=== PATIENT | female | born 1995 | race Hispanic/Latino ===

== ENCOUNTER 2022-02-03 08:17 | Emergency (ER) | payer OTHER ==
[~2022-02-03] VITALS: Ht 154.9 cm; Wt 56.8 kg
[2022-02-03] MEDS ORDERED: NAPR-885 PO (08:25)
[2022-02-03] MEDS ORDERED: IBUP1TAB7 PO (08:25)
[2022-02-03] MEDS ORDERED: traMADol 50 MG TAB PO ONE (09:40)
[2022-02-03] MEDS ORDERED: ACETAMINOPHEN TAB 650MG DOSE (2X325MG) PO ONE (09:40)
[2022-02-03 11:52] LABS: BASO # 0.1 10^3/uL (0.0-0.2); BASO % 0.8 % (0.0-1.0); EOS # 0.1 10^3/uL (0.0-0.5); EOS % 1.6 % (0.0-3.0); HEMATOCRIT 34.9 % (36.0-47.0); HEMOGLOBIN 11.4 g/dl (12.0-15.5); LYMPH # 2.2 10^3/uL (1.5-5.0); LYMPH % 35.7 % (24.0-44.0); MEAN CORPUSCULAR HEMOGLOBIN 28.9 pg (27.0-33.0); MEAN CORPUSCULAR HGB CONC 32.7 g/dl (32.0-36.5); MEAN CORPUSCULAR VOLUME 88.4 fl (80.0-96.0); MONO # 0.5 10^3/uL (0.0-0.8); MONO % 8.7 % (2.0-8.0); NEUTROPHILS # 3.3 10^3/uL (1.5-8.5); NEUTROPHILS % 52.9 % (36.0-66.0); PLATELET COUNT, AUTOMATED 264 10^3/uL (150-450); RED BLOOD COUNT 3.95 10^6/uL (4.00-5.40); WHITE BLOOD COUNT 6.2 10^3/uL (4.0-10.0)
[2022-02-03 12:26] LABS: HCG, SERUM QUALITATIVE NEGATIVE (NEGATIVE)
[2022-02-03 12:27] LABS: BLOOD UREA NITROGEN 11 MG/DL (7-18); CALCIUM LEVEL 8.9 MG/DL (8.5-10.1); CARBON DIOXIDE LEVEL 24 MEQ/L (21-32); CHLORIDE LEVEL 109 MEQ/L (98-107); CREATININE FOR GFR 0.48 MG/DL (0.55-1.30); GLOMERULAR FILTRATION RATE > 60.0 (>60); GLUCOSE, FASTING 83 MG/DL (70-100); SODIUM LEVEL 137 MEQ/L (136-145)
[2022-02-03] MEDS ORDERED: HYDR-3713 PO ×2 (13:30→14:11)
[2022-02-03 13:58] VITALS: BP 118/56
== END 2022-02-04 03:18 | disposition home or self-care (01) ==
LOC: M ED 08:17
DX: S49.91XA Unspecified injury of right shoulder and upper arm, initial encounter (principal); X50.0XXA Overexertion from strenuous movement or load, initial encounter; Y92.89 Other specified places as the place of occurrence of the external cause; Y93.B3 Activity, free weights; Y99.1 Military activity

== ENCOUNTER 2022-12-16 22:00 | Emergency (ER) | payer MEDICARE, OTHER ==
[~2022-12-16] VITALS: Ht 154.9 cm; Wt 53.0 kg
[~2022-12-16 22:00] MED LIST: HYDR-3713 PO; IBUP1TAB7 PO; NAPR-885 PO
[2022-12-16] MEDS ORDERED: MULTTAB20 PO (22:41)
[2022-12-17] MEDS ORDERED: NS 1,000 ML IV ONE (07:35)
[2022-12-17 08:24] LABS: BASO % 0.5 % (0.0-1.0); EOS # 0.1 10^3/uL (0.0-0.5); EOS % 2.4 % (0.0-3.0); HEMATOCRIT 33.5 % (36.0-47.0); HEMOGLOBIN 11.1 g/dl (12.0-15.5); LYMPH # 1.3 10^3/uL (1.5-5.0); LYMPH % 30.8 % (24.0-44.0); MEAN CORPUSCULAR HEMOGLOBIN 29.4 pg (27.0-33.0); MEAN CORPUSCULAR HGB CONC 33.1 g/dl (32.0-36.5); MEAN CORPUSCULAR VOLUME 88.6 fl (80.0-96.0); MONO # 0.4 10^3/uL (0.0-0.8); MONO % 9.8 % (2.0-8.0); NEUTROPHILS # 2.3 10^3/uL (1.5-8.5); NEUTROPHILS % 56.3 % (36.0-66.0); PLATELET COUNT, AUTOMATED 195 10^3/uL (150-450); RED BLOOD COUNT 3.78 10^6/uL (4.00-5.40); WHITE BLOOD COUNT 4.1 10^3/uL (4.0-10.0)
[2022-12-17] MEDS ORDERED: ACETAMINOPHEN 325 MG TAB PO ONE (08:35)
[2022-12-17] MEDS ORDERED: METOCLOPRAMIDE INJ 10MG/2ML VIAL IV ONE (08:35)
[2022-12-17] MEDS ORDERED: FAMOTIDINE 20 MG TAB PO ONE (08:35)
[2022-12-17] MEDS ORDERED: MULTIVITAMIN -ADULT INJECTION 10 ML, THIAMINE INJection 100 MG, FOLIC ACID 1 MG in NS 1... IV ONE (08:35)
[2022-12-17 08:50] LABS: LIPASE 22 U/L (12-53)
[2022-12-17 08:56] LABS: ALBUMIN 3.4 G/DL (3.2-5.2); ALKALINE PHOSPHATASE 52 U/L (46-116); ALT/SGPT 10 U/L (7.0-40); AST/SGOT 15 U/L (<34); BILIRUBIN,DIRECT 0.1 MG/DL (<0.4); BILIRUBIN,TOTAL 0.5 MG/DL (0.3-1.2); BLOOD UREA NITROGEN 8 MG/DL (9-23); CALCIUM LEVEL 8.7 MG/DL (8.5-10.1); CARBON DIOXIDE LEVEL 23 MMOL/L (20-31); CHLORIDE LEVEL 104 MMOL/L (98-107); CREATININE FOR GFR 0.57 MG/DL (0.55-1.30); GLOMERULAR FILTRATION RATE > 60.0 (>60); GLUCOSE, FASTING 81 MG/DL (60-100); POTASSIUM SERUM 3.6 MMOL/L (3.5-5.1); SODIUM LEVEL 137 MMOL/L (136-145); TOTAL PROTEIN 6.4 G/DL (5.7-8.2)
[2022-12-17 09:42] LABS: CK-MB VALUE MASS < 1.0 NG/ML (<3.6)
[2022-12-17 09:44] LABS: CPK CREATINE PHOSPHOKINASE 47 U/L (34-145); MB/CK RELATIVE INDEX 2.12 (< OR =4)
[2022-12-17 10:03] LABS: HCG, SERUM QUANTITATIVE 62800.5 MIU/ML (<4.2)
[2022-12-17 11:49] VITALS: BP 119/57
[2022-12-19] MEDS ORDERED: MACR100C43 PO (12:21)
== END 2022-12-17 11:51 | disposition home or self-care (01) ==
LOC: M ED 22:00
DX: O26.91 Pregnancy related conditions, unspecified, first trimester (principal); R10.13 Epigastric pain; O21.9 Vomiting of pregnancy, unspecified; O99.891 Other specified diseases and conditions complicating pregnancy; R22.32 Localized swelling, mass and lump, left upper limb; Z3A.01 Less than 8 weeks gestation of pregnancy; Z79.899 Other long term (current) drug therapy
CPT/HCPCS: 76801; 76817; 76882; 80048; 80076; 81000; 81015; 82550; 82553; 83690; 84702; 85025; 87088; 87186; 87428; 87486; 87581; 87633; 87798; 93005; 93976; 96361; 96365; 96366; 96375; 99284; J2765; J3411

== ENCOUNTER 2022-12-31 18:39 | Emergency (ER) | payer OTHER ==
[~2022-12-31] VITALS: Ht 154.9 cm; Wt 52.1 kg
[2022-12-31 18:39] VITALS: BP 135/63
[~2022-12-31 18:39] MED LIST changes: +MACR100C43 PO; +MULTTAB20 PO
[2022-12-31] MEDS ORDERED: NS 1,000 ML IV ONE (20:45)
[2022-12-31] MEDS ORDERED: ONDANSETRON 4MG 2ML VIAL IV ONE (20:45)
[2022-12-31 21:06] LABS: BASO # 0.1 10^3/uL (0.0-0.2); BASO % 0.7 % (0.0-1.0); EOS # 0.1 10^3/uL (0.0-0.5); EOS % 1.1 % (0.0-3.0); HEMATOCRIT 35.4 % (36.0-47.0); LYMPH # 2.5 10^3/uL (1.5-5.0); LYMPH % 27.3 % (24.0-44.0); MEAN CORPUSCULAR HEMOGLOBIN 29.1 pg (27.0-33.0); MEAN CORPUSCULAR HGB CONC 33.9 g/dl (32.0-36.5); MEAN CORPUSCULAR VOLUME 85.9 fl (80.0-96.0); MONO # 0.5 10^3/uL (0.0-0.8); MONO % 5.7 % (2.0-8.0); NEUTROPHILS % 64.8 % (36.0-66.0); PLATELET COUNT, AUTOMATED 287 10^3/uL (150-450); RED BLOOD COUNT 4.12 10^6/uL (4.00-5.40); WHITE BLOOD COUNT 9.2 10^3/uL (4.0-10.0)
[2022-12-31] MEDS ORDERED: diphenhydrAMINE 50MG/ML VIAL IV ONE (21:35)
[2022-12-31 21:58] LABS: ALBUMIN 3.6 G/DL (3.2-5.2); ALKALINE PHOSPHATASE 51 U/L (46-116); ALT/SGPT 12 U/L (7.0-40); AST/SGOT 17 U/L (<34); BILIRUBIN,TOTAL 0.4 MG/DL (0.3-1.2); BLOOD UREA NITROGEN 10 MG/DL (9-23); CARBON DIOXIDE LEVEL 25 MMOL/L (20-31); CHLORIDE LEVEL 103 MMOL/L (98-107); CREATININE FOR GFR 0.46 MG/DL (0.55-1.30); GLOMERULAR FILTRATION RATE > 60.0 (>60); GLUCOSE, FASTING 77 MG/DL (60-100); POTASSIUM SERUM 3.7 MMOL/L (3.5-5.1); SODIUM LEVEL 136 MMOL/L (136-145)
[2022-12-31 22:00] LABS: MAGNESIUM LEVEL 1.9 MG/DL (1.8-2.4)
[2022-12-31] MEDS ORDERED: METOCLOPRAMIDE INJ 10MG/2ML VIAL IV ONE (22:45)
[2022-12-31] MEDS ORDERED: REGL5TAB2 PO (23:23)
[2022-12-31] MEDS ORDERED: ONDA4TAB6 PO (23:32)
== END 2023-01-01 | disposition home or self-care (01) ==
LOC: M ED 18:39
DX: O26.899 Other specified pregnancy related conditions, unspecified trimester (principal); Z3A.08 8 weeks gestation of pregnancy
CPT/HCPCS: 76705; 80053; 81001; 83735; 85025; 96361; 96374; 96375; 99283; J1200; J2405; J2765

== ENCOUNTER → 2023-01-06 | Outpatient (CLI) | payer OTHER ==
[~2023-01-06] MED LIST changes: +ONDA4TAB6 PO; +REGL5TAB2 PO
[2023-01-06 14:38] LABS: HEMATOCRIT 35.7 % (36.0-47.0); HEMOGLOBIN 11.8 g/dl (12.0-15.5); MEAN CORPUSCULAR HEMOGLOBIN 29.6 pg (27.0-33.0); MEAN CORPUSCULAR HGB CONC 33.1 g/dl (32.0-36.5); MEAN CORPUSCULAR VOLUME 89.7 fl (80.0-96.0); PLATELET COUNT, AUTOMATED 277 10^3/uL (150-450); RED BLOOD COUNT 3.98 10^6/uL (4.00-5.40); WHITE BLOOD COUNT 6.6 10^3/uL (4.0-10.0)
[2023-01-06 15:37] LABS: HIV 1&2 SCREEN CENTAUR NEGATIVE (NEGATIVE)
[2023-01-06 16:21] LABS: GC DNA AMPLIFICATION NEGATIVE (NEGATIVE)
== END ==
LOC: M PLALAB 09:33
PROVIDERS: ATTEND Advanced Practice Midwife
DX: Z34.81 Encounter for supervision of other normal pregnancy, first trimester (principal)

== ENCOUNTER → 2023-02-03 | Outpatient (CLI) | payer OTHER | LOC: M PLALAB 10:34 | PROVIDERS: ATTEND Advanced Practice Midwife | DX: Z34.80 Encounter for supervision of other normal pregnancy, unspecified trimester (principal) ==

== ENCOUNTER → 2023-04-15 | Outpatient (CLI) | payer OTHER | LOC: M WHC 09:20 | PROVIDERS: ATTEND Advanced Practice Midwife | DX: Z34.82 Encounter for supervision of other normal pregnancy, second trimester (principal); Z3A.23 23 weeks gestation of pregnancy ==

== ENCOUNTER → 2023-04-27 | Outpatient (CLI) | payer OTHER ==
[2023-04-27 14:01] LABS: HEMATOCRIT 28.7 % (36.0-47.0); HEMOGLOBIN 9.1 g/dl (12.0-15.5); MEAN CORPUSCULAR HEMOGLOBIN 28.6 pg (27.0-33.0); MEAN CORPUSCULAR HGB CONC 31.7 g/dl (32.0-36.5); MEAN CORPUSCULAR VOLUME 90.3 fl (80.0-96.0); PLATELET COUNT, AUTOMATED 236 10^3/uL (150-450); RED BLOOD COUNT 3.18 10^6/uL (4.00-5.40); WHITE BLOOD COUNT 8.5 10^3/uL (4.0-10.0)
[2023-04-27 15:22] LABS: GC DNA AMPLIFICATION NEGATIVE (NEGATIVE)
== END ==
LOC: M PLALAB 10:09
PROVIDERS: ATTEND Obstetrics & Gynecology
DX: Z34.80 Encounter for supervision of other normal pregnancy, unspecified trimester (principal)
CPT/HCPCS: 36415; 82950; 85027; 86850; 86900; 86901; 87810; 87850; G0463

== ENCOUNTER 2023-05-05 10:01 | Outpatient (CLI) | payer OTHER ==
[~2023-05-05] VITALS: Ht 162.6 cm; Wt 61.8 kg
[~2023-05-05 10:01] MED LIST changes: +IRON SUCROSE 500 MG in NS 250 ML OVER 4 HRS IV ONE
[2023-05-05 10:05] VITALS: BP 114/58; O2SAT 98
[2023-05-05 11:30] VITALS: BP 111/55; O2SAT 98
[2023-05-05 12:30] VITALS: BP 121/56; O2SAT 97
[2023-05-05 14:30] VITALS: BP 133/57; O2SAT 97
== END 2023-05-05 14:40 ==
LOC: M INFU 10:01
PROVIDERS: ATTEND Obstetrics & Gynecology
DX: D64.9 Anemia, unspecified (principal)
CPT/HCPCS: 96365; 96366; J1756

== ENCOUNTER → 2023-06-20 | Outpatient (CLI) | payer OTHER ==
[~2023-06-20] MED LIST changes: -IRON SUCROSE 500 MG in NS 250 ML OVER 4 HRS IV ONE
[2023-06-20 14:05] LABS: HEMATOCRIT 33.1 % (36.0-47.0); HEMOGLOBIN 10.6 g/dl (12.0-15.5); MEAN CORPUSCULAR HEMOGLOBIN 28.1 pg (27.0-33.0); MEAN CORPUSCULAR VOLUME 87.8 fl (80.0-96.0); PLATELET COUNT, AUTOMATED 221 10^3/uL (150-450); RED BLOOD COUNT 3.77 10^6/uL (4.00-5.40); WHITE BLOOD COUNT 9.4 10^3/uL (4.0-10.0)
[2023-06-20 14:38] LABS: FREE T4 0.96 NG/DL (0.89-1.76); THYROID STIMULATING HORMONE 1.914 uIU/ML (0.55-4.78)
== END ==
LOC: M PLALAB 11:51
PROVIDERS: ATTEND Obstetrics & Gynecology
DX: O99.019 Anemia complicating pregnancy, unspecified trimester (principal); D64.9 Anemia, unspecified

== ENCOUNTER → 2023-07-12 | Outpatient (REF) | payer OTHER ==
[~2023-07-12] MED LIST changes: +COLA100C5 PO; +IBUP80TA PO; +METO10TA2 PO; +PERCOCET PO
== END ==
LOC: M PLALAB 13:19
PROVIDERS: ATTEND Obstetrics & Gynecology
DX: Z34.80 Encounter for supervision of other normal pregnancy, unspecified trimester (principal)

== ENCOUNTER 2024-03-11 11:47 | Day surgery (SDC) | payer OTHER ==
[~2024-03-11] VITALS: Ht 154.9 cm; Wt 59.3 kg
[2024-03-11 11:47] VITALS: BP 100/48; TEMP 97.8; O2SAT 97
[2024-03-11] MEDS: LR 1,000 ML IV SCH ×2 (12:30→12:55)
[2024-03-11 12:33] LABS: HEMATOCRIT 23.8 % (36.0-47.0); HEMOGLOBIN 7.9 g/dl (12.0-15.5); MEAN CORPUSCULAR HEMOGLOBIN 28.4 pg (27.0-33.0); MEAN CORPUSCULAR HGB CONC 33.2 g/dl (32.0-36.5); MEAN CORPUSCULAR VOLUME 85.6 fl (80.0-96.0); PLATELET COUNT, AUTOMATED 259 10^3/uL (150-450); RED BLOOD COUNT 2.78 10^6/uL (4.00-5.40); WHITE BLOOD COUNT 6.6 10^3/uL (4.0-10.0)
[2024-03-11] MEDS ORDERED: AMPI2INJ3 IV (12:39)
[2024-03-11] MEDS ORDERED: GENT40VL IV (12:39)
[2024-03-11] MEDS ORDERED: [UNRECOGNIZED DRUG - CODE] IV (12:39)
[2024-03-11] MEDS ORDERED: CLIN1INJ IV (12:39)
[2024-03-11] MEDS ORDERED: MORP1INJ IV (12:41)
[2024-03-11 13:00] VITALS: BP 104/53; TEMP 97.8; O2SAT 97
[2024-03-11] MEDS ORDERED: DOXYCYCLINE HYCLATE 100MG/10ML VIAL As Ordered ONE (13:06)
[2024-03-11] MEDS: METHYLERGONOVINE MALEATE 0.2MG/ML 1ML VIAL As Ordered ONE (13:41)
[2024-03-11] MEDS ORDERED: KETOROLAC 60MG 2ML VIAL As Ordered ONE (13:55)
[2024-03-11] MEDS ORDERED: fentaNYL 100 MCG/2 ML INJECTION As Ordered ONE (13:55)
[2024-03-11] MEDS ORDERED: LIDOCAINE 2% 100MG/5ML SDV (FOR ANES.) As Ordered ONE (13:55)
[2024-03-11] MEDS ORDERED: METOCLOPRAMIDE INJ 10MG/2ML VIAL As Ordered ONE (13:55)
[2024-03-11] MEDS ORDERED: propofoL 200 MG/20 ML VIAL As Ordered ONE (13:55)
[2024-03-11] MEDS ORDERED: MIDAZOLAM INJ 2MG/2ML VIAL As Ordered ONE (13:55)
[2024-03-11] MEDS ORDERED: ONDANSETRON 4MG 2ML VIAL As Ordered ONE (13:55)
[2024-03-11] MEDS: ONDANSETRON 4MG 2ML VIAL IV PRN (14:10)
[2024-03-11] MEDS: oxyCODONE 5MG TAB PO PRN (14:11)
[2024-03-11] MEDS ORDERED: PERCOCET 5MG/325MG TAB PO PRN (14:20)
[2024-03-11] MEDS: fentaNYL 100 MCG/2 ML INJECTION IV PRN (14:31)
[2024-03-11 15:00] VITALS: BP 104/53; TEMP 97.8; O2SAT 97
[2024-03-11 15:30] VITALS: BP 103/43; TEMP 98; O2SAT 99
[2024-03-11 16:30] VITALS: BP 107/48; TEMP 98.3; O2SAT 98
[2024-03-11 17:30] VITALS: BP 100/46; TEMP 98.6; O2SAT 97
[2024-03-11] MEDS ORDERED: KETOROLAC 30 MG/ML 1ML VIAL IV SCH (19:00)
== END 2024-03-11 18:23 | disposition home or self-care (01) ==
LOC: M PED 11:47 → M SDC 11:47 → UNDOADMOB 11:47 → EDSTATUS 13:15 → UNDODISOB 18:23 → M SDC 18:23
PROVIDERS: ATTEND Obstetrics & Gynecology
DX: O02.1 Missed abortion (principal)
CPT/HCPCS: 36415; 59820; 85027; 86850; 86900; 86901; 86920; 88305; 96360; 96361; J1100; J1885; J2210; J2250; J2405; J2765; J3010; S0191

== ENCOUNTER → 2024-07-05 | Outpatient (CLI) | payer OTHER ==
[~2024-07-05] MED LIST changes: +AMPI2INJ3 IV; +CLIN1INJ IV; +GENT40VL IV; +MORP1INJ IV; +ONDA-282 PO; -ONDA4TAB6 PO; +[UNRECOGNIZED DRUG - CODE] IV
[2024-07-05 12:42] LABS: HEMATOCRIT 33.1 % (36.0-47.0); HEMOGLOBIN 10.2 g/dl (12.0-15.5); MEAN CORPUSCULAR HEMOGLOBIN 22.5 pg (27.0-33.0); MEAN CORPUSCULAR HGB CONC 30.8 g/dl (32.0-36.5); MEAN CORPUSCULAR VOLUME 73.1 fl (80.0-96.0); PLATELET COUNT, AUTOMATED 353 10^3/uL (150-450); RED BLOOD COUNT 4.53 10^6/uL (4.00-5.40); WHITE BLOOD COUNT 7.1 10^3/uL (4.0-10.0)
[2024-07-05 13:43] LABS: HIV 1&2 SCREEN NEGATIVE (NEGATIVE)
[2024-07-05 13:50] LABS: HEPATITIS C VIRUS ABY INDEX 0.08 INDEX (<0.8)
[2024-07-05 14:17] LABS: GC DNA AMPLIFICATION NEGATIVE (NEGATIVE)
== END ==
LOC: M PLALAB 10:25
PROVIDERS: ATTEND Nurse Practitioner Women's Health
DX: O09.293 Supervision of pregnancy with other poor reproductive or obstetric history, third trimester (principal); Z3A.00 Weeks of gestation of pregnancy not specified

== ENCOUNTER → 2024-08-21 | Outpatient (CLI) | payer OTHER | LOC: M PLALAB 08:44 | PROVIDERS: ATTEND Obstetrics & Gynecology | DX: Z34.82 Encounter for supervision of other normal pregnancy, second trimester (principal); Z3A.00 Weeks of gestation of pregnancy not specified ==

== ENCOUNTER → 2024-08-21 | Outpatient (REF) | payer OTHER | LOC: M PLALAB 08:35 | PROVIDERS: ATTEND Obstetrics & Gynecology | DX: Z34.82 Encounter for supervision of other normal pregnancy, second trimester (principal); Z3A.14 14 weeks gestation of pregnancy ==

== ENCOUNTER → 2024-09-12 | Outpatient (REF) | payer OTHER ==
[2024-09-12 18:56] LABS: Trichomonas vaginalis (AMP) NOT DETECTED (NEGATIVE)
[2024-09-12 19:19] LABS: GC DNA AMPLIFICATION NEGATIVE (NEGATIVE)
== END ==
LOC: M SFHCWAGY 17:00
PROVIDERS: ATTEND Obstetrics & Gynecology
DX: R30.0 Dysuria (principal)

== ENCOUNTER → 2024-09-14 | Outpatient (REF) | payer OTHER | LOC: M SFHCWAGY 14:25 | PROVIDERS: ATTEND Obstetrics & Gynecology | DX: Z34.82 Encounter for supervision of other normal pregnancy, second trimester (principal) ==

== ENCOUNTER → 2024-09-24 | Outpatient (CLI) | payer OTHER | LOC: M WHC 08:48 | PROVIDERS: ATTEND Obstetrics & Gynecology | DX: Z34.82 Encounter for supervision of other normal pregnancy, second trimester (principal) ==

== ENCOUNTER → 2024-11-13 | Outpatient (CLI) | payer OTHER ==
[2024-11-13 18:53] LABS: HEMATOCRIT 30.4 % (36.0-47.0); HEMOGLOBIN 9.1 g/dl (12.0-15.5); MEAN CORPUSCULAR HEMOGLOBIN 23.6 pg (27.0-33.0); MEAN CORPUSCULAR HGB CONC 29.9 g/dl (32.0-36.5); MEAN CORPUSCULAR VOLUME 78.8 fl (80.0-96.0); PLATELET COUNT, AUTOMATED 277 10^3/uL (150-450); RED BLOOD COUNT 3.86 10^6/uL (4.00-5.40); WHITE BLOOD COUNT 7.5 10^3/uL (4.0-10.0)
[2024-11-13 19:08] LABS: GLUCOSE CHALLENGE TEST 1 HOUR 128 MG/DL (LESS THAN 140)
[2024-11-13 19:38] LABS: HIV 1&2 SCREEN NEGATIVE (NEGATIVE)
[2024-11-13 19:45] LABS: HEPATITIS C VIRUS ABY INDEX 0.03 INDEX (<0.8)
[2024-11-13 21:16] LABS: GC DNA AMPLIFICATION NEGATIVE (NEGATIVE)
== END ==
LOC: M PLALAB 15:01
PROVIDERS: ATTEND Nurse Practitioner Family
DX: Z34.80 Encounter for supervision of other normal pregnancy, unspecified trimester (principal)

== ENCOUNTER → 2024-11-22 | Outpatient (CLI) | payer OTHER ==
[2024-11-22 16:23] LABS: PERCENT SATURATION 5.6 % (13.2-45.0)
[2024-11-22 16:26] LABS: FERRITIN 4.4 NG/ML (7.3-270.7)
== END ==
LOC: M PLALAB 12:13
PROVIDERS: ATTEND Nurse Practitioner Family
DX: O99.019 Anemia complicating pregnancy, unspecified trimester (principal); Z3A.00 Weeks of gestation of pregnancy not specified

== ENCOUNTER 2024-12-07 09:41 | Outpatient (CLI) | payer OTHER ==
[~2024-12-07] VITALS: Ht 152.4 cm; Wt 64.5 kg
[~2024-12-07 09:41] MED LIST changes: +ALBUTEROL SULFATE 2.5MG/0.5ML INH NEB SOLN INH PRN; +EPINEPHrine INJ 1 MG/ML 1ML AMP IM PRN; +diphenhydrAMINE 50MG/ML VIAL IV PRN; +methylPREDNISolone 125MG 2ML VIAL IV PRN
[2024-12-07] MEDS: ACETAMINOPHEN 650 MG PO ONE (10:04)
[2024-12-07] MEDS: diphenhydrAMINE 25MG CAP PO ONE (10:22)
[2024-12-07 10:23] VITALS: BP 112/54; O2SAT 98
[2024-12-07] MEDS: IRON SUCROSE 200MG IVP IV ONE (10:24)
[2024-12-07 11:03] VITALS: BP 125/59; O2SAT 98
== END 2024-12-07 11:15 ==
LOC: M INFU 09:41
PROVIDERS: ATTEND Nurse Practitioner Family
DX: D50.9 Iron deficiency anemia, unspecified (principal)
CPT/HCPCS: 96374; J1756

== ENCOUNTER 2024-12-14 10:16 | Outpatient (CLI) | payer OTHER ==
[~2024-12-14] VITALS: Ht 157.5 cm; Wt 63.6 kg
[2024-12-14 10:30] VITALS: BP 133/58; O2SAT 98
[2024-12-14] MEDS: diphenhydrAMINE 25MG PO PRIOR TO INFUSION PO ONE (10:47)
[2024-12-14] MEDS: ACETAMINOPHEN 650MG PO PRIOR TO INFUSION PO ONE (10:47)
[2024-12-14] MEDS: IRON SUCROSE 200MG IVP IV ONE (11:05)
[2024-12-14 11:45] VITALS: BP 119/58; O2SAT 98
== END 2024-12-14 11:55 ==
LOC: M INFU 10:16
PROVIDERS: ATTEND Nurse Practitioner Family
DX: D50.9 Iron deficiency anemia, unspecified (principal)
CPT/HCPCS: 96374; J1756

== ENCOUNTER 2024-12-21 10:56 | Outpatient (CLI) | payer OTHER ==
[~2024-12-21] VITALS: Ht 160 cm; Wt 64.0 kg
[2024-12-21 11:11] VITALS: BP 113/58; O2SAT 97
[2024-12-21] MEDS: diphenhydrAMINE 25MG CAP PO ONE (11:17)
[2024-12-21] MEDS: ACETAMINOPHEN 650 MG PO ONE (11:17)
[2024-12-21] MEDS: IRON SUCROSE 200 MG IVP IV ONE (11:36)
[2024-12-21 12:21] VITALS: BP 133/66; O2SAT 97
== END 2024-12-21 12:22 ==
LOC: M INFU 10:56
PROVIDERS: ATTEND Nurse Practitioner Family
DX: D50.9 Iron deficiency anemia, unspecified (principal)
CPT/HCPCS: 96374; J1756

== ENCOUNTER → 2025-01-14 | Outpatient (REF) | payer OTHER ==
[~2025-01-14] MED LIST changes: -ALBUTEROL SULFATE 2.5MG/0.5ML INH NEB SOLN INH PRN; -EPINEPHrine INJ 1 MG/ML 1ML AMP IM PRN; -diphenhydrAMINE 50MG/ML VIAL IV PRN; -methylPREDNISolone 125MG 2ML VIAL IV PRN
== END ==
LOC: M SFHCWAGY 13:01
PROVIDERS: ATTEND Obstetrics & Gynecology
DX: Z3A.35 35 weeks gestation of pregnancy (principal)

== ENCOUNTER → 2025-01-18 | Outpatient (CLI) | payer OTHER | LOC: M WHC 14:38 | PROVIDERS: ATTEND Nurse Practitioner Family | DX: O35.03X0 Maternal care for (suspected) central nervous system malformation or damage in fetus, choroid plexus cysts, not applicable or unspecified (principal); Z3A.36 36 weeks gestation of pregnancy ==